=== PATIENT | female | born 1930 | race Two or more races ===

== ENCOUNTER 2017-03-06 14:23 | Inpatient (IN) | payer OTHER ==
[~2017-03-06] VITALS: Ht 154.9 cm; Wt 59.0 kg
[~2017-03-06 14:23] MED LIST: AMOX-CLAV 875-1 EACH; ARICEPT10 MG; ARICEPT10 MG PO; ASA81 MG PO; CEFTRIAXONE1 G1 IV; DAILY VALUE1 EACH; FOLIC ACID0.4 MG PO; GLUCOTROL10 MG PO; HUMALOG MIX 75/10 ML SC; INTEGRA PLUS C1 EACH PO; LEVOFLOXACIN750 MG PO; LEVSIN0.125 MG PO; LOPRESSOR25 MG; LOPRESSOR5 MG/5 ML; PERCOCET 5/3251 TAB PO; PRILOSEC20 MG PO; PROTONIX40 MG PO; REMERON15 MG PO; RISPERIDONE0.25 MG; RISPERIDONE1 MG; SEROQUEL50 MG PO; SIDEROL TABLET1 TAB PO; SIMVASTATIN40 MG; SUPER B W/C1 CAP; TOPROL XL25 M1 PO; TOPROL XL25 MG; VIT D3 PO; VITAMIN C1000 M1 PO; VITAMIN E400 UNI2; ZANTAC300 MG PO; ZESTORETIC 20-1 EAC1 PO; ZOCOR40 MG PO; ZOFRAN4 MG PO
== END 2017-03-08 11:39 | disposition home or self-care (01) | DRG 379 ==
LOC: ER 14:23 → MEDI 03-07 07:24 → SEC-K 03-07 07:24 → MEDI 03-07 08:52
PROC: 30233N1 Transfusion of Nonautologous Red Blood Cells into Peripheral Vein, Percutaneous Approach (ICD-10-PCS; principal; 2017-03-07)
DX: K29.51 Unspecified chronic gastritis with bleeding (principal); D50.0 Iron deficiency anemia secondary to blood loss (chronic)

== ENCOUNTER 2017-03-25 14:28 | Inpatient (IN) | payer OTHER ==
[~2017-03-25] VITALS: Ht 154.9 cm; Wt 59.0 kg
== END 2017-03-26 22:25 | disposition home or self-care (01) | DRG 379 ==
LOC: ER 14:28 → SEC-K 19:55 → MEDJ 03-26 10:43
PROC: 30233N1 Transfusion of Nonautologous Red Blood Cells into Peripheral Vein, Percutaneous Approach (ICD-10-PCS; principal; 2017-03-25)
DX: K29.01 Acute gastritis with bleeding (principal); D50.0 Iron deficiency anemia secondary to blood loss (chronic)

== ENCOUNTER 2017-04-10 17:29 | Emergency (ER) | payer OTHER ==
[~2017-04-10] VITALS: Ht 157.5 cm; Wt 59.0 kg
== END 2017-04-11 10:00 | disposition home or self-care (01) ==
LOC: ER 17:29
DX: D50.0 Iron deficiency anemia secondary to blood loss (chronic) (principal); K92.1 Melena; R19.5 Other fecal abnormalities; R10.84 Generalized abdominal pain

== ENCOUNTER 2017-04-23 16:07 | Inpatient (IN) | payer OTHER ==
[~2017-04-23] VITALS: Ht 157.5 cm; Wt 57.6 kg
== END 2017-04-25 20:22 | disposition left against medical advice (07) | DRG 379 ==
LOC: ER 16:07 → SEC-K 04-24 08:24 → SURH 04-25 16:56 → SEC-K 04-25 18:27
PROC: 30233N1 Transfusion of Nonautologous Red Blood Cells into Peripheral Vein, Percutaneous Approach (ICD-10-PCS; principal; 2017-04-24)
DX: K29.61 Other gastritis with bleeding (principal); D50.0 Iron deficiency anemia secondary to blood loss (chronic); J10.1 Influenza due to other identified influenza virus with other respiratory manifestations

== ENCOUNTER 2017-05-15 14:03 | Emergency (ER) | payer OTHER ==
[~2017-05-15] VITALS: Ht 154.9 cm; Wt 54.9 kg
== END 2017-05-16 13:13 | disposition home or self-care (01) ==
LOC: ER 14:03
DX: D50.0 Iron deficiency anemia secondary to blood loss (chronic) (principal); R10.13 Epigastric pain; R19.5 Other fecal abnormalities; K29.61 Other gastritis with bleeding

== ENCOUNTER 2017-06-03 16:44 | Emergency (ER) | payer OTHER ==
[~2017-06-03] VITALS: Ht 152.4 cm; Wt 54.4 kg
== END 2017-06-05 11:56 | disposition home or self-care (01) ==
LOC: ER 16:44
DX: D50.0 Iron deficiency anemia secondary to blood loss (chronic) (principal); K92.2 Gastrointestinal hemorrhage, unspecified; K92.1 Melena